=== PATIENT | female | born 1960 | race Two or more races ===

== ENCOUNTER 2023-04-05 16:54 | Emergency (ER) | payer MEDICAID, OTHER ==
[~2023-04-05] VITALS: Ht 154.9 cm; Wt 61.0 kg
[2023-04-05] MEDS ORDERED: KETOROLAC TROMETH 60MG/2ML VIAL IM ONE (20:45)
[2023-04-05] MEDS ORDERED: HYDR1TAB97 PO (20:45)
[2023-04-05] MEDS ORDERED: HYDROcodone-ACET 5/325MG TAB PO ONE (20:45)
[2023-04-05 22:52] VITALS: BP 136/82; PULSE 67; RESP 17; TEMP 97.9; O2SAT 97
== END 2023-04-05 23:25 | disposition home or self-care (01) ==
LOC: ER 16:54
DX: S43.401A Unspecified sprain of right shoulder joint, initial encounter (principal); S13.9XXA Sprain of joints and ligaments of unspecified parts of neck, initial encounter; S63.601A Unspecified sprain of right thumb, initial encounter; S33.5XXA Sprain of ligaments of lumbar spine, initial encounter; M89.9 Disorder of bone, unspecified; V49.9XXA Car occupant (driver) (passenger) injured in unspecified traffic accident, initial encounter; Y93.89 Activity, other specified; Y92.89 Other specified places as the place of occurrence of the external cause; Y99.8 Other external cause status
CPT/HCPCS: 72100; 72125; 73030; 73130; 96372; 99285; J1885